=== PATIENT | female | born 1950 | race Caucasian/White ===

== ENCOUNTER 2020-10-21 14:45 | Emergency (ER) | payer OTHER, MEDICARE ==
[2020-10-21 15:04] VITALS: TEMP 98.3; BMI 24.7
[2020-10-21 17:10] LABS: BASO % 0.7 % (0-2.0); EOS % 2.4 % (0-4.5); HEMATOCRIT 40.1 % (32.4-45.2); HEMOGLOBIN 13.4 GM/dL (10.7-15.3); LYMPH % 18.3 % (8-40); MCHC 33.3 g/dl (32.0-36.0); MEAN CELL VOLUME 90.1 fl (80-96); MEAN PLT VOLUME 8.6 fl (7.5-11.1); MONO % 11.2 % (3.8-10.2); NEUT % 67.4 % (42.8-82.8); PLATELET COUNT 276 K/MM3 (134-434); RBC 4.45 M/mm3 (3.60-5.2); RDW 15.1 % (11.6-15.6); WHITE BLOOD COUNT 7.6 K/mm3 (4.0-10.0)
[2020-10-21 17:21] LABS: INR 0.91 (0.83-1.09)
[2020-10-21 17:24] LABS: ACTIVATED PTT 28.2 SECONDS (25.2-36.5)
[2020-10-21 17:29] LABS: CHLORIDE 107 mmol/L (98-107); SODIUM 141 mmol/L (136-145)
[2020-10-21 17:31] LABS: CALCIUM 8.9 mg/dL (8.5-10.1)
[2020-10-21 17:32] LABS: ALBUMIN 4.1 g/dl (3.4-5.0); ANION GAP 6 MMOL/L (8-16); CO2 28 mmol/L (21-32); GLUCOSE,RANDOM 80 mg/dL (74-106); MAGNESIUM 2.1 mg/dL (1.8-2.4)
[2020-10-21 17:35] LABS: CREATININE 0.9 mg/dL (0.55-1.3); SGOT/AST 18 U/L (15-37); SGPT/ALT 20 U/L (13-61)
[2020-10-21 17:37] LABS: BILIRUBIN,TOTAL 0.3 mg/dL (0.2-1)
[2020-10-21 17:38] LABS: ALK PHOS 75 U/L (45-117)
[2020-10-21 19:50] VITALS: BP 130/72; PULSE 89
== END 2020-10-21 20:01 | disposition home or self-care (01) ==
LOC: JER 14:45
DX: S09.90XA Unspecified injury of head, initial encounter (principal)
CPT/HCPCS: 36415; 70450-TC; 71045-TC-FY; 72125-TC; 73523-TC-FY; 80053; 82550; 83735; 84439; 84443; 84484; 85025; 85610; 85730; 93005; 93010; 99285-25

== ENCOUNTER 2021-01-30 10:50 | Inpatient (IN) | payer OTHER, MEDICARE ==
[2021-01-30] MEDS ORDERED: ACETAMINOPHEN 500 MG TABLET (FP) PO ONE (12:20)
[2021-01-30] MEDS ORDERED: ACETAMINOPHEN 500 MG TABLET (FP) ONE (12:48)
[2021-01-30] MEDS ORDERED: MECLIZINE HCL 25 MG TABLET (FP) PO ONE (14:59)
[2021-01-30] MEDS ORDERED: MECLIZINE HCL 25 MG TABLET (FP) ONE (15:28)
[2021-01-30] MEDS ORDERED: ONDANSETRON *ODT* 4 MG TABLET SL ONE (15:50)
[2021-01-30] MEDS ORDERED: ONDANSETRON *ODT* 4 MG TABLET ONE (16:07)
[2021-01-30 16:15] LABS: BASO % 0.3 % (0-2.0); EOS % 0.5 % (0-4.5); HEMATOCRIT 39.3 % (32.4-45.2); HEMOGLOBIN 13.1 GM/dL (10.7-15.3); LYMPH % 6.7 % (8-40); MCH 30.3 pg (25.7-33.7); MCHC 33.4 g/dl (32.0-36.0); MEAN CELL VOLUME 90.7 fl (80-96); MEAN PLT VOLUME 8.1 fl (7.5-11.1); MONO % 7.3 % (3.8-10.2); NEUT % 85.2 % (42.8-82.8); PLATELET COUNT 288 10^3/uL (134-434); RBC 4.33 M/mm3 (3.60-5.2); RDW 14.3 % (11.6-15.6); WHITE BLOOD COUNT 15.1 K/mm3 (4.0-10.0)
[2021-01-30 16:35] LABS: ALBUMIN 3.8 g/dl (3.4-5.0); BLOOD UREA NITROGEN 20.2 mg/dL (7-18)
[2021-01-30 16:39] LABS: CREATININE 0.8 mg/dL (0.55-1.3)
[2021-01-30 16:40] LABS: BILIRUBIN,TOTAL 0.5 mg/dL (0.2-1); TOT PROT 6.7 g/dl (6.4-8.2)
[2021-01-30] MEDS ORDERED: KETOROLAC TROMETHAMINE 15 MG/ML VIAL IVPUSH ONE (18:25)
[2021-01-30] MEDS ORDERED: KETOROLAC TROMETHAMINE 15 MG/ML VIAL ONE (18:55)
[2021-01-30 19:56] LABS: URINE APPEARANCE CLEAR; URINE BILIRUBIN NEGATIVE (NEGATIVE); URINE COLOR YELLOW; URINE GLUCOSE (UA) NEGATIVE (NEGATIVE); URINE KETONE 1+ (NEGATIVE); URINE LEUK ESTERASE NEGATIVE (NEGATIVE); URINE NITRITE NEGATIVE (NEGATIVE); URINE PROTEIN NEGATIVE (NEGATIVE); URINE UROBILINOGEN 0.2 mg/dL (0.2-1.0)
[2021-01-31 00:38] VITALS: BMI 21.4
[2021-01-31] MEDS ORDERED: MELATONIN 5 MG TABLETS PO ONE ×2 (03:54→22:55)
[2021-01-31] MEDS ORDERED: KETOROLAC TROMETHAMINE 10 MG TABLET PO ONE (03:55)
[2021-01-31] MEDS ORDERED: LEVOTHYROXINE NA 88 MCG TABLET (FP) PO SCH (07:00)
[2021-01-31 08:39] LABS: HEMATOCRIT 36.5 % (32.4-45.2); HEMOGLOBIN 12.6 GM/dL (10.7-15.3); MCH 31.7 pg (25.7-33.7); MCHC 34.6 g/dl (32.0-36.0); MEAN CELL VOLUME 91.5 fl (80-96); MEAN PLT VOLUME 8.1 fl (7.5-11.1); PLATELET COUNT 252 10^3/uL (134-434); RBC 3.99 M/mm3 (3.60-5.2); RDW 14.5 % (11.6-15.6); WHITE BLOOD COUNT 8.2 K/mm3 (4.0-10.0)
[2021-01-31 09:09] LABS: BLOOD UREA NITROGEN 24.4 mg/dL (7-18); CALCIUM 8.6 mg/dL (8.5-10.1)
[2021-01-31 09:11] LABS: CREATININE 0.8 mg/dL (0.55-1.3); PHOSPHOROUS 3.3 mg/dL (2.5-4.9)
[2021-01-31 09:14] LABS: CHOLESTEROL 214 mg/dL (50-200)
[2021-01-31 09:15] LABS: TRIGLYCERIDES 69 mg/dL (0-150)
[2021-01-31 09:16] LABS: LDL CHOLESTEROL (ONLY SJRH) 112 mg/dL (5-100)
[2021-01-31 09:18] LABS: HDL CHOLESTEROL 74 mg/dL (40-60)
[2021-01-31] MEDS: ENOXAPARIN NA (PORCINE) 40 MG/0.4 ML DISP.SYRIN SQ SCH (10:35)
[2021-01-31] MEDS ORDERED: SODIUM CHLORIDE 1,000 ML IV SCH (11:00)
[2021-01-31 11:33] LABS: N-TERMINAL BNP 123.5 pg/ml (5-125)
[2021-01-31] MEDS ORDERED: LEVOTHYROXINE NA 50 MCG TABLET (FP) PO ONE ×2 (13:46)
[2021-01-31] MEDS ORDERED: TRIMETHOBENZAMIDE HCL 300 MG CAPSULE PO ONE (14:56)
[2021-01-31] MEDS: diazePAM 2 MG TABLET PO PRN (15:52)
[2021-01-31] MEDS: ACETAMINOPHEN 325 MG TABLET (FP) PO PRN (17:46)
[2021-01-31] MEDS ORDERED: ACETAMINOPHEN 1000 MG/100 ML VIAL (NON FORMULARY) IVPB ONE (18:32)
[2021-01-31] MEDS ORDERED: PT OWN MED DRAWER 7, Y5N ONE (18:38)
[2021-01-31] MEDS: FLUoxetine HCL 20 MG CAPSULE PO SCH (20:27)
[2021-01-31] MEDS ORDERED: ATORVASTATIN CA 80 MG TABLET (FP) ONE (21:16)
[2021-01-31] MEDS: ATORVASTATIN CA 10 MG TABLET (FP) PO SCH (21:47)
[2021-01-31] MEDS ORDERED: ATORVASTATIN CA 10 MG TABLET (FP) PO SCH (22:00)
[2021-01-31] MEDS ORDERED: diazePAM 2 MG TABLET PO SCH (22:00)
[2021-02-01] MEDS: diazePAM 2 MG TABLET PO PRN ×2 (03:03→21:21)
[2021-02-01] MEDS: LEVOTHYROXINE NA 50 MCG TABLET (FP) PO SCH (06:09)
[2021-02-01] MEDS ORDERED: MELATONIN 5 MG TABLETS PO PRN (06:48)
[2021-02-01] MEDS ORDERED: PT OWN MED DRAWER 7, Y5N ONE (09:22)
[2021-02-01] MEDS ORDERED: buPROPion HCL 75 MG TABLET PO SCH (10:00)
[2021-02-01] MEDS: ENOXAPARIN NA (PORCINE) 40 MG/0.4 ML DISP.SYRIN SQ SCH (10:13)
[2021-02-01] MEDS: ACETAMINOPHEN 325 MG TABLET (FP) PO PRN (10:13)
[2021-02-01] MEDS: FLUoxetine HCL 20 MG CAPSULE PO SCH (10:14)
[2021-02-01] MEDS: ATORVASTATIN CA 10 MG TABLET (FP) PO SCH (21:20)
[2021-02-01] MEDS ORDERED: QUEtiapine FUMARATE 25 MG TABLET PO SCH (22:00)
[2021-02-02] MEDS: LEVOTHYROXINE NA 50 MCG TABLET (FP) PO SCH (06:07)
[2021-02-02] MEDS ORDERED: PT OWN MED DRAWER 7, Y5N ONE (09:03)
[2021-02-02] MEDS: ACETAMINOPHEN 325 MG TABLET (FP) PO PRN (09:10)
[2021-02-02 09:11] LABS: BASO % 1.1 % (0-2.0); EOS % 4.1 % (0-4.5); HEMATOCRIT 36.8 % (32.4-45.2); HEMOGLOBIN 12.6 GM/dL (10.7-15.3); LYMPH % 20.1 % (8-40); MCH 31.3 pg (25.7-33.7); MCHC 34.2 g/dl (32.0-36.0); MEAN CELL VOLUME 91.5 fl (80-96); MEAN PLT VOLUME 8.4 fl (7.5-11.1); MONO % 10.2 % (3.8-10.2); NEUT % 64.5 % (42.8-82.8); PLATELET COUNT 264 10^3/uL (134-434); RBC 4.03 M/mm3 (3.60-5.2); RDW 14.3 % (11.6-15.6); WHITE BLOOD COUNT 7.8 K/mm3 (4.0-10.0)
[2021-02-02] MEDS: ENOXAPARIN NA (PORCINE) 40 MG/0.4 ML DISP.SYRIN SQ SCH (09:11)
[2021-02-02] MEDS: FLUoxetine HCL 20 MG CAPSULE PO SCH (09:12)
[2021-02-02] MEDS: diazePAM 2 MG TABLET PO PRN (09:12)
[2021-02-02 10:03] LABS: CALCIUM 8.4 mg/dL (8.5-10.1)
[2021-02-02 10:04] LABS: BLOOD UREA NITROGEN 14.5 mg/dL (7-18)
[2021-02-02 10:06] LABS: CREATININE 0.7 mg/dL (0.55-1.3)
[2021-02-02 10:07] LABS: BILIRUBIN,TOTAL 0.6 mg/dL (0.2-1)
[2021-02-02 10:15] LABS: ALBUMIN 3.1 g/dl (3.4-5.0)
[2021-02-02] MEDS ORDERED: BETAMETHASONE DIP 0.05% TP LOTION 30 ML BOTTLE TP SCH (15:33)
[2021-02-02 18:12] VITALS: BP 150/71; PULSE 113; TEMP 98.2
== END 2021-02-02 18:35 | DRG 92 ==
LOC: JER 10:50 → JERBED 18:17 → J5S 23:29
PROVIDERS: ADMIT Internal Medicine; ATTEND Internal Medicine
DX: R26.81 Unsteadiness on feet (principal); F13.20 Sedative, hypnotic or anxiolytic dependence, uncomplicated; M54.41 Lumbago with sciatica, right side; W19.XXXA Unspecified fall, initial encounter; G93.89 Other specified disorders of brain; T42.75XA Adverse effect of unspecified antiepileptic and sedative-hypnotic drugs, initial encounter; M47.27 Other spondylosis with radiculopathy, lumbosacral region; M81.0 Age-related osteoporosis without current pathological fracture; F41.8 Other specified anxiety disorders; E78.5 Hyperlipidemia, unspecified; D72.829 Elevated white blood cell count, unspecified; E03.9 Hypothyroidism, unspecified
CPT/HCPCS: 36415; 70450-TC; 70551-TC; 71045-TC-FY; 71275-TC; 72125-TC; 72128-TC; 72131-TC; 72141-TC; 73070-TC-LT-FY; 73110-TC-LT-FY; 73130-TC-LT-FY; 73523-TC-FY; 80048; 80053; 80061; 81003; 83036; 83735; 83880; 84100; 84439; 84443; 84484; 85025; 85027; 93005; 93010; 93306-TC; 93880-TC; 97116-GP; 97162-GP; 99285-25; C9803; Q0162; Q9967; U0003; U0005